=== PATIENT | female | born 1965 | race Caucasian/White ===

== ENCOUNTER 2016-10-13 21:20 | Inpatient (IN) | payer MEDICAID ==
[~2016-10-13] VITALS: Ht 157.5 cm; Wt 82.8 kg
[~2016-10-13 21:20] MED LIST: CEL20 PO; FIORICET1 TAB PO; MOTRIN PO; PROAIR HFA0.09 MG/A1 INH; ZES10 PO; ZOFI IV; ZOFRAN ODT4 MG PO
[2016-10-13 22:34] LABS: BASOPHIL % 0.7 % (0-2); PLATELET COUNT 231 x10^3mcL (130-400); RED CELL DISTRIBUTION WIDTH 14.1 % (11.5-14.5)
[2016-10-13 22:45] LABS: CALCIUM 8.7 mg/dL (8.5-10.1); CARBON DIOXIDE 26.7 mmol/L (21-32); CHLORIDE SERUM 107 mmol/L (98-107); GFR1 > 60 mL/min; GLUCOSE SERUM 118 mg/dL (74-106); POTASSIUM SERUM 3.6 mmol/L (3.5-5.1); SODIUM SERUM 142 mmol/L (136-145)
[2016-10-13 22:49] LABS: ALBUMIN 3.4 g/dL (3.4-5.0); ALKALINE PHOSPHATASE 136 U/L (46-116); ALT/SGPT 58 U/L (14-59); AST/SGOT 23 U/L (15-37); BILIRUBIN TOTAL 0.2 mg/dL (0.20-1.00); TOTAL PROTEIN, SERUM 6.9 g/dL (6.4-8.2)
[2016-10-13 22:55] LABS: microscopic required? NO
[2016-10-13 23:01] LABS: urine erythrocyte NEGATIVE (NEGATIVE)
[2016-10-13 23:22] LABS: AMPHETAMINE QUAL UR NONE DETECTED (NEG <=1000)
[2016-10-14 00:26] LABS: APPEARANCE CSF CLEAR; COLOR CSF COLORLESS
[2016-10-14 00:27] LABS: RBC CSF 2 /cumm (0); WBC CSF 3 /cumm (0-5)
[2016-10-14 00:29] LABS: APPEARANCE CSF CLEAR; COLOR CSF COLORLESS; RBC CSF 1 /cumm (0); WBC CSF 1 /cumm (0-5)
[2016-10-14 00:41] LABS: TOTAL PROTEIN CSF 31.7 mg/dL (15-45)
[2016-10-14 02:04] LABS: MAGNESIUM 2.2 mg/dL (1.8-2.4)
[2016-10-14 02:07] LABS: CHOLESTEROL/HDL RATIO 6.2; T3 TOTAL 1.16 ng/mL
[2016-10-14 02:14] LABS: FREE T4 0.94 ng/dL (0.76-1.46); FREE THYROXINE INDEX 2.2 ug/dL (1.4-4.5)
[2016-10-14 05:30] LABS: BASOPHIL % 0.6 % (0-2); PLATELET COUNT 208 x10^3mcL (130-400); RED CELL DISTRIBUTION WIDTH 14.2 % (11.5-14.5)
[2016-10-14 05:33] LABS: CALCIUM 7.6 mg/dL (8.5-10.1); CARBON DIOXIDE 28.2 mmol/L (21-32); CHLORIDE SERUM 111 mmol/L (98-107); CREATININE SERUM 0.9 mg/dL (0.6-1.0); GFR1 > 60 mL/min; GLUCOSE SERUM 120 mg/dL (74-106); POTASSIUM SERUM 3.9 mmol/L (3.5-5.1); SODIUM SERUM 145 mmol/L (136-145)
[2016-10-14 09:29] VITALS: BP 142/69
[2016-10-14 12:04] VITALS: BP 137/71
[2016-10-14 17:21] VITALS: BP 122/70
[2016-10-14 21:09] VITALS: Ht 157.5 cm; Wt 82.8 kg
[2016-10-14 22:00] VITALS: BP 120/65
[2016-10-15 06:04] LABS: BASOPHIL % 0.6 % (0-2); PLATELET COUNT 216 x10^3mcL (130-400); RED CELL DISTRIBUTION WIDTH 14.2 % (11.5-14.5)
[2016-10-15 06:06] VITALS: BP 117/64
[2016-10-15 06:32] LABS: CALCIUM 8.2 mg/dL (8.5-10.1); CARBON DIOXIDE 27.4 mmol/L (21-32); CHLORIDE SERUM 110 mmol/L (98-107); CREATININE SERUM 0.9 mg/dL (0.6-1.0); GFR1 > 60 mL/min; GLUCOSE SERUM 145 mg/dL (74-106); POTASSIUM SERUM 4.1 mmol/L (3.5-5.1); SODIUM SERUM 145 mmol/L (136-145)
[2016-10-15 07:35] VITALS: BP 118/54
[2016-10-15 10:18] VITALS: BP 118/54
[2016-10-15 13:00] VITALS: BP 131/78
[2016-10-15] MEDS ORDERED: ZITHROMAX250 MG PO (13:37)
[2016-10-15] MEDS ORDERED: BUPROPION HCL100 MG PO (13:37)
[2016-10-15] MEDS ORDERED: LAC PO (13:37)
== END 2016-10-15 14:10 | disposition home or self-care (01) | DRG 54 ==
LOC: ED 21:20 → DU 10-14 00:54
PROVIDERS: Emergency Medicine; Family Medicine; ADMIT Family Medicine
PROC: 009U3ZX Drainage of Spinal Canal, Percutaneous Approach, Diagnostic (ICD-10-PCS; principal; 2016-10-14)
DX: G43.909 Migraine, unspecified, not intractable, without status migrainosus (principal); N17.0 Acute kidney failure with tubular necrosis; E87.8 Other disorders of electrolyte and fluid balance, not elsewhere classified; I10 Essential (primary) hypertension; E83.51 Hypocalcemia; E78.5 Hyperlipidemia, unspecified; R73.03 Prediabetes; J32.9 Chronic sinusitis, unspecified; F17.210 Nicotine dependence, cigarettes, uncomplicated; D72.829 Elevated white blood cell count, unspecified; F41.8 Other specified anxiety disorders; Z68.33 Body mass index [BMI] 33.0-33.9, adult
CPT/HCPCS: 80307; 83880; 84439; 99406; J0696; J1885; J2060; J2270; J2405; J7030; Q0092